=== PATIENT | male | born 1960 | race Caucasian/White ===

== ENCOUNTER 2016-12-14 22:08 | Emergency (ER) | payer MEDICAID ==
[~2016-12-14] VITALS: Ht 157.5 cm; Wt 128.0 kg
[2016-12-14 22:10] VITALS: Ht 157.5 cm; Wt 128.0 kg
--- NOTE | 2016-12-14 23:56 | ERA ---
ER Documentation Chief Complaint Date/Time DATE: 12/14/16 TIME: 23:56 Chief Complaint r side rib pain sp fall 2 weeks ago HPI The patient is a 56-year-old male, presenting to the ER because of right-sided ribs pain after he fell 2 weeks ago. The pain is worse with movement, he denies fever, chills, cough, neck pain, chest pain with exertion of vomiting or diaphoresis, dyspnea, abdominal pain, vomiting. He does not smoke socially, drinks socially Past medical history: Hypertension Past surgical history: None ROS All systems reviewed and are negative except as per history of present illness. Medications Home Meds Active Scripts Amlodipine Besylate* (Amlodipine Besylate*) 5 Mg Tablet, 5 MG PO DAILY, #30 TAB Prov:ANIKET LEE MD 12/15/16 Ibuprofen* (Ibuprofen*) 600 Mg Tablet, 600 MG PO Q6H Y for PAIN, #20 TAB Prov:ANIKET LEE MD 12/15/16 Allergies Allergies: Coded Allergies: No Known Allergy (Unverified , 12/14/16) Physical Exam Vitals Vital Signs Date Time Temp Pulse Resp B/P Pulse Ox O2 Delivery O2 Flow Rate FiO2 12/15/16 05:00 56 16 162/107 96 Nasal Cannula 2.0 12/15/16 03:00 59 20 179/102 93 Room Air 12/15/16 01:04 Nasal Cannula 2 12/15/16 01:00 63 21 181/104 92 Room Air 12/14/16 22:10 98.1 81 18 216/117 95 Physical Exam Const: No acute distress. Head: Atraumatic. Eyes: Normal Conjunctiva. ENT: Normal External Ears, Nose and Mouth. Neck: Full range of motion. No meningismus. Resp: Clear to auscultation bilaterally. Cardio: Regular rate and rhythm, no murmurs. Mild right-sided chest wall tender, no crepitus, not warm to touch Abd: Soft, non distended, normal bowel sounds, non tender. Skin: No petechiae or rashes. Back: No midline or flank tenderness. Ext: No cyanosis, or edema. Neur: Awake and alert. No focal deficit Psych: Normal Mood and Affect. Result Diagram: 12/15/16 0045 12/15/16 0045 Results 24 hrs Laboratory Tests Test 12/15/16 00:45 12/15/16 05:00 White Blood Count 11.210^3/ul Red Blood Count 5.3910^6/ul Hemoglobin 15.7g/dl Hematocrit 49.4% Mean Corpuscular Volume 91.7fl Mean Corpuscular Hemoglobin 29.1pg Mean Corpuscular Hemoglobin Concent 31.8g/dl Red Cell Distribution Width 13.2% Platelet Count 77464^3/UL Mean Platelet Volume 10.6fl Neutrophils % 61.8% Lymphocytes % 23.6% Monocytes % 9.3% Eosinophils % 4.5% Basophils % 0.4% Nucleated Red Blood Cells % 0.0/100WBC Neutrophils # 6.910^3/ul Lymphocytes # 2.610^3/ul Monocytes # 1.010^3/ul Eosinophils # 0.510^3/ul Basophils # 0.010^3/ul Nucleated Red Blood Cells # 0.010^3/ul Prothrombin Time 12.6Sec Prothrombin Time Ratio 1.0 INR International Normalized Ratio 0.94 Activated Partial Thromboplast Time 28.1Sec Sodium Level 142mmol/L Potassium Level 4.0mmol/L Chloride Level 97mmol/L Carbon Dioxide Level 33mmol/L Anion Gap 16 Blood Urea Nitrogen 11mg/dl Creatinine 0.73mg/dl Glucose Level 112mg/dl Calcium Level 9.3mg/dl Troponin I 0.026ng/ml 0.024ng/ml Creatine Kinase 54IU/L Creatine Kinase Index 2.4 Creatinine Kinase MB (Mass) 1.29ng/ml Current Medications Medications (Trade) Dose Ordered Sig/Nakul Route PRN Reason Start Time Stop Time Status Last Admin Dose Admin Ketorolac Tromethamine (Toradol) 30 mg ONCE STAT IV 12/15/16 00:18 12/15/16 00:19 DC 12/15/16 00:45 Procedures/MDM [place] [id number] Radiology Main Line: [phone] DIAGNOSTIC IMAGING REPORT Patient: MADISON ALVAREZ : 1960 Age: 56 Sex: M MR #: [id number] DOS: 12/15/16 0018 Ordering MD: ANIKET LEE MD Location: E/R Room/Bed: PROCEDURE: XR Chest. CLINICAL INDICATION: Chest pain. TECHNIQUE: Single frontal view of the chest. COMPARISON: None. FINDINGS: Cardiomegaly. Mild pulmonary vascular ingestion and patchy air space disease. No signs of pleural fluid or pneumothorax are seen. The osseous structures and soft tissues are unremarkable. IMPRESSION: Mild failure. RPTAT: [facility] Physician Carlo Date Time Electronically viewed and signed by [address] Physician on 12/15/2016 02:08 RS/ CC: ANIKET LEE MD EK:09 PM read by emergency physician Rate/Rhythm: Normal Sinus Rhythm 68 beats/min QRS, ST, T-waves: No ST elevation, no T inversion, and left anterior fascicular block, LVH, septal Q waves, lateral T abnormality Impression: Abnormal EKG EK:56 AM read by emergency physician Rate/Rhythm: Normal Sinus Rhythm 63 beats/min QRS, ST, T-waves: No ST elevation, no T inversion, and left anterior fascicular block, LVH, septal Q waves, lateral T abnormality Impression: Abnormal EKG MEDICAL MAKING DECISION: The patient is a 56-year-old male, presenting with acute right chest wall contusion. He was treated with Toradol 30 mg IV for pain with good response The differential diagnoses considered include but are not limited to acute coronary syndrome, acute myocardial infarction, pericarditis, pulmonary embolism , aortic dissection, pneumonia, pleural effusion, pneumothorax, GERD, chest wall pain. Departure Diagnosis: Primary Impression: Rib pain Additional Impression: Hypertension Condition: Good Comments He was discharged with Motrin and Norvasc I discussed the findings with the patient. I advised the patient to follow-up with the primary physician in about 1-2 days, sooner if needed and return if any concern. ANIKET LEE MD December 14, 2016 23:56
[2016-12-15] MEDS ORDERED: KETOROLAC 30 MG INJ IV STA (00:18)
[2016-12-15 00:54] LABS: ADD SCAN DIFF NO
[2016-12-15 01:10] LABS: INR 0.94; PROTIME 12.6 Sec (12.2-14.2)
[2016-12-15 01:11] LABS: PARTIAL THROMBOPLASTIN TIME 28.1 Sec (25.0-35.0)
[2016-12-15 01:13] LABS: CALCIUM 9.3 mg/dl (8.4-10.2); CREATININE 0.73 mg/dl (0.61-1.24)
[2016-12-15 01:24] LABS: TROPONIN-I 0.026 ng/ml (0.00-0.12)
--- NOTE | 2016-12-15 02:09 | RADRPT ---
PROCEDURE: XR Chest. CLINICAL INDICATION: Chest pain. TECHNIQUE: Single frontal view of the chest. COMPARISON: None. FINDINGS: Cardiomegaly. Mild pulmonary vascular ingestion and patchy air space disease. No signs of pleural fluid or pneumothorax are seen. The osseous structures and soft tissues are unremarkable. IMPRESSION: Mild failure. RPTAT: [facility] Physician Carlo Date Time Electronically viewed and signed by Physician Carlo on 12/15/2016 02:08 SHUBHAM/
[2016-12-15 04:43] LABS: BASOPHILS % 0.4 % (0.0-2.0); EOSINOPHILS # 0.5 10^3/ul (0.0-0.5); EOSINOPHILS % 4.5 % (0.0-7.0); HEMATOCRIT 49.4 % (42.0-52.0); HEMOGLOBIN 15.7 g/dl (14.0-18.0); LYMPHOCYTES # 2.6 10^3/ul (0.8-2.9); LYMPHOCYTES % 23.6 % (15.0-51.0); MEAN CORPUSCULAR HEMOGLOBIN 29.1 pg (29.0-33.0); MEAN CORPUSCULAR HGB CONC 31.8 g/dl (32.0-37.0); MEAN CORPUSCULAR VOLUME 91.7 fl (82.0-101.0); MEAN PLATELET VOLUME 10.6 fl (7.4-10.4); MONOCYTES % 9.3 % (0.0-11.0); NEUTROPHIL # 6.9 10^3/ul (1.6-7.5); NEUTROPHILS % 61.8 % (39.0-77.0); PLATELET COUNT 264 10^3/UL (140-415); RED BLOOD COUNT 5.39 10^6/ul (4.70-6.10); RED CELL DISTRIBUTION WIDTH 13.2 % (11.5-14.5); WHITE BLOOD COUNT 11.2 10^3/ul (4.8-10.8)
[2016-12-15 05:00] VITALS: BP 162/107; PULSE 56; RESP 16
[2016-12-15] MEDS ORDERED: IBUP-1542 PO (05:01)
[2016-12-15] MEDS ORDERED: AMLO-145 PO (05:02)
[2016-12-15 05:44] LABS: TROPONIN-I 0.024 ng/ml (0.00-0.12)
[2016-12-15 05:47] LABS: CK-MB 1.29 ng/ml (0.0-2.4)
== END 2016-12-15 07:50 | disposition home or self-care (01) ==
LOC: E/R 22:08
DX: R07.81 Pleurodynia (principal); I10 Essential (primary) hypertension; R07.9 Chest pain, unspecified
CPT/HCPCS: 36415; 71010; 80048; 82550; 82553; 84484; 85025; 85610; 85730; 93005; 96374; J1885; Z7502

== ENCOUNTER 2017-05-23 21:58 | Inpatient (IN) | END 2017-05-28 17:40 | disposition home or self-care (01) | DRG 418 | DX: K80.12 Calculus of gallbladder with acute and chronic cholecystitis without obstruction (principal); Z68.42 Body mass index [BMI] 45.0-49.9, adult; K76.0 Fatty (change of) liver, not elsewhere classified; K82.1 Hydrops of gallbladder; I10 Essential (primary) hypertension; I16.0 Hypertensive urgency; E66.01 Morbid (severe) obesity due to excess calories; R73.03 Prediabetes; G47.33 Obstructive sleep apnea (adult) (pediatric); E87.6 Hypokalemia ==

== ENCOUNTER 2017-06-17 14:13 | Outpatient (CLI) | payer SELFPAY ==
[~2017-06-17] VITALS: Ht 167.6 cm; Wt 128.6 kg
[~2017-06-17 14:13] MED LIST: AMLO-147 PO; BENA5TAB2 PO; CARV6.2579 PO; DOCU-216 PO; HYDR-3498 PO; IBUP-1542 PO
[2017-06-17 14:18] VITALS: BP 180/110; PULSE 89; RESP 22; Ht 167.6 cm; Wt 128.6 kg
--- NOTE | 2017-06-17 14:50 | PN ---
Date/Time of Note Date/Time of Note DATE: 06/17/17 TIME: 14:44 Assessment/Plan Assessment/Plan Assessment/Plan [facility] Progress Note Date of Service: 06/17/17 Today's Impression & Plan: Overall stable and doing well. No obvious major complication or wound issues. Reviewed path and importance of following up with PCP and a geological sample tester. Explained to patient and his and answered all questions. Patient and family appeared to understand and agreed with plans. With above assessment, I've recommended the followin. F/u with PCP 2. Referral to Dr. Razo for mild steatohepatitis 3. F/u with us prn 4. Permanent lifestyle changes toward healthier living with goal of getting BMI less than 24 Thank you very much for having me involved in the care of this very pleasant patient and wonderful family. If you have any questions, please feel free to contact me at [phone]. Nature of presenting problem: High severity Please note that, given the extensive number of diagnoses or management options , the extensive amount and/or complexity of data needed to be reviewed, and high risk of complications and/or morbidity or mortality, this qualifies as high complexity type of decision-making. Disclaimers: 1. Inadvertent spelling and grammatical errors are likely due to electronic health record (EHR)/dictation software used and do not reflect on the quality of delivered patient care. 2. The electronic timestamp recorded on this note does not necessarily reflect the actual date and time of the visit or the service. 3. Portions of this note may have been created through electronic templates and computer algorithms that might bring in information either from the system or from other physicians and providers. Please note that such information may or may not contain errors, the occurrence of which are outside of my control. In general (but not always) this happens either in the beginning or at the end of the note. The portion of the note that I have created are generally done in 1 continuous block of text, flanked at the beginning and at the end by " ", and entered into one field in the EHR. 4. There may be other unanticipated errors in the note that are outside of my control. I can only attest to the portions of the note that I have created. Updated clinical summary: A very-pleasant 57-year-old gentleman with a number of comorbidities including BMI 45.8, cardiomegaly, dense calcifications of coronary arteries, diabetes, hypertension and others, presenting with severe acute on chronic cholecystitis with gallbladder hydrops; s/p laparoscopic cholecystectomy and core needle liver biopsy, segment 5 (3 cores) [facility] 05/26/17. Comorbidities: 1. Severe acute on chronic cholecystitis with gallbladder hydrops; s/p laparoscopic cholecystectomy and core needle liver biopsy, segment 5 (3 cores) [facility] 05/26/17 2. BMI 45.8 3. Cardiomegaly 4. Dense calcifications of coronary arteries 5. Hypertension 6. Elevated hemoglobin A1c 6.1 05/24/2017 [facility] Subjective: No major events or complaints; no major abdominal pain; no n/v/d; no sob or cp; minimal activity; + bowel activity Objective: Vitals: See below Exam: GENERAL: On exam, the patient was sitting in a chair and appeared to be comfortable and in no acute distress. ABDOMEN: Soft, non-tender and nondistended. Incisions appear to be c/d/i w/o obvious e/e/d/h. There are no peritoneal signs or guarding. SKIN: Skin appears to be pink and feels warm to touch. NEUROLOGIC: Patient is awake, alert, and follows commands appropriately. Exam/Review of Systems Vital Signs Vitals Vital Signs Date Time Temp Pulse Resp B/P Pulse Ox O2 Delivery O2 Flow Rate FiO2 06/17/17 14:18 98.1 89 22 180/110 96 Room Air LAURA GR M.D. Jun 17, 2017 14:50
== END 2017-06-17 17:00 | disposition home or self-care (01) ==
LOC: HPC 14:13
PROVIDERS: ATTEND Transplant Surgery
DX: K80.12 Calculus of gallbladder with acute and chronic cholecystitis without obstruction (principal); I25.10 Atherosclerotic heart disease of native coronary artery without angina pectoris; I10 Essential (primary) hypertension; E11.9 Type 2 diabetes mellitus without complications; I51.7 Cardiomegaly
CPT/HCPCS: G0463

== ENCOUNTER 2018-02-17 14:50 | Emergency (ER) | END 2018-02-17 17:25 | disposition left against medical advice (07) ==

== ENCOUNTER 2018-05-27 17:42 | Emergency (ER) | END 2018-05-27 21:01 | disposition home or self-care (01) ==

== ENCOUNTER 2018-05-31 17:13 | Emergency (ER) | END 2018-05-31 19:40 | disposition home or self-care (01) ==